=== PATIENT | male | born 1985 | race Caucasian/White ===

== ENCOUNTER 2024-11-29 11:55 | Emergency (ER) | payer OTHER, SELFPAY ==
[2024-11-29] VITALS (29 sets, daily range): BP systolic 128–158; BP diastolic 71–90; PULSE 41–58; RESP 3–21; TEMP 36.6; O2SAT 91–97
--- NOTE | 2024-11-29 12:00 | RT.EKG_ITS ---
APPROVED REPORT Exam: Resting ECG Reason for Exam: long qt Patient Location: E HR:59 bpm ECG Measurements Heart Rate 59 AXIS MA 186 P 52 QRSd 98 QRS 85 QT [id number] T 73 QTc 0 Conclusion Sinus bradycardia...rate< 60
--- NOTE | 2024-11-29 12:15 | RT.EKG_ITS ---
APPROVED REPORT Exam: Resting ECG Reason for Exam: repeat ekg Patient Location: E HR:59 bpm ECG Measurements Heart Rate 59 AXIS DC 176 P 44 QRSd 105 QRS 82 QT 677 T 71 QTc 673 Conclusion Sinus bradycardia...rate< 60 ? Prolonged QT interval...QTc >500mS Flat t waves limits QTc calculation
[2024-11-29 13:30] LABS: Magnesium 2.1 mg/dL (1.8-2.4)
[2024-11-29 13:44] LABS: Anion Gap 4.5 mmol/L (3-11); BUN 16 mg/dL (7-18); CO2 31.5 mmol/L (21.0-32.0); CREATININE 1.1 mg/dL (0.70-1.30); Calcium 9.2 mg/dL (8.5-10.1); Chloride 107 mmol/L (98-107); Estimated GFR 87.03 (mL/min/1.73m2); Glucose 103 mg/dL (74-106); Potassium 4.1 mmol/L (3.5-5.1); Sodium 143 mmol/L (136-145); TSH (W/Ref FT4) 1.82 uIU/mL (0.36-3.74); Troponin I 7 ng/L (<or=76)
--- NOTE | 2024-11-29 14:56 | ED.GENADUL_ITS ---
Discharge Plan Disposition Patient Disposition: Home Condition: Stable Discharge Details Clinical Impression: History of prolonged Q-T interval on ECG Primary Care Provider: Unknown,Unknown ED Provider: Jermaine Abreu Home Meds and New Rx's Prescriptions: Continued methadone 40 mg tablet,soluble 100 mg PO DAILY sertraline [Zoloft] 100 mg tablet 100 mg PO DAILY clonidine HCl 0.1 mg tablet 0.1 mg PO DAILY Discharge Instructions Additional Instructions: An EKG and lab work was performed today. Your case was discussed with [facility] cardiology. Is recommended that you continue your methadone treatment at this time. Please follow-up with your substance use disorder treatment team. Please fol low-up with your primary care physician. Return to the ER immediately for any worsening or new concerning symptoms. HPI General Mode of arrival: EMS . Date/Time Provider Initiated Documentation: 11/29/24 12:02 . Limitations to Documentation: no limitations . Information obtained by: patient and RN/MD . HPI Narrative: 39-year-old male sent to the ER concern for prolonged QT interval. Patient is currently incarcerated. He has a history of substance use disorder treated with methadone over the past 1 year. He apparently had an outpatient EKG several weeks ago that demonstrated prolonged QTc. Methadone dosing was decreased and a repeat EKG continued to demonstrate prolonged QTc. Screening labs were ordered and unfortunately could not be obtained after 2 attempts. Cardiology was consulted and recommended continued repeat EKG and monitor off methadone. Dr. Salguero at [facility] overseeing care today and recommended patient be sent to the ED for lab testing that could not be obtained and skilled nursing. Patient is asymptomatic. He has no chest pain or palpitations. No shortness of breath. Patient denies history of syncope. He has no cardiac history. No history of sudden in his family. Related Data Home Medications ?Medication ?Instructions ?Recorded ?Confirmed clonidine HCl 0.1 mg tablet 0.1 mg PO DAILY 11/29/24 11/29/24 methadone 40 mg soluble tablet 100 mg PO DAILY 11/29/24 11/29/24 sertraline 100 mg tablet (Zoloft) 100 mg PO DAILY 11/29/24 11/29/24 Allergies Allergy/AdvReac Type Severity Reaction Status Date / Time Penicillins Allergy Mild Skin Rash Verified 11/29/24 12:15 General Stated Complaint: Chest Pain LENKA: 3 Review of Systems All systems reviewed & are unremarkable except as noted in HPI and below Exam Const General: cooperative and no acute distress [facility] Mouth: moist mucous membranes Eyes Conjunctivae: normal conjunctivae Sclera: normal sclerae Resp Auscultation: clear to auscultation bilaterally, no rales, no rhonchi and no wheezes Cardio Rate: regular rate and not tachycardic Rhythm: regular rhythm GI Palpation: soft, not firm, no guarding, no masses, not rigid and nontender Skin General skin exam: no rashes or lesions noted Course Vital Signs Vital signs: Vital Signs Temperature 36.6 C 11/29/24 12:11 Pulse 57 L 11/29/24 12:11 Respiratory Rate 16 11/29/24 12:11 Blood Pressure 158/85 H 11/29/24 12:11 Pulse Oximetry 93 11/29/24 12:11 Temperature 36.6 C 11/29/24 12:11 Temperature Source Oral 11/29/24 12:11 Pulse 57 L 11/29/24 12:11 Respiratory Rate 16 11/29/24 12:11 Blood Pressure 158/85 H 11/29/24 12:11 Blood Pressure Position Sitting 11/29/24 12:11 Pulse Oximetry 93 11/29/24 12:11 Oxygen Delivery Method Room Air 11/29/24 12:11 Oxygen Flow Rate 0 11/29/24 12:11 End Tidal Co2 0 11/29/24 12:11 Lab/Test Results Lab/Test Results: Laboratory Tests Range/Units 11/29/24 13:09 Sodium (136-145) mmol/L 143 Potassium (3.5-5.1) mmol/L 4.1 Chloride (98-107) mmol/L 107 Carbon Dioxide (21.0-32.0) mmol/L 31.5 Anion Gap (3-11) mmol/L 4.5 BUN (7-18) mg/dL 16 Creatinine (0.70-1.30) mg/dL 1.1 Est GFR (CKD-EPI 2020) (mL/min/1.73m2) 87.03 Glucose (74-106) mg/dL 103 Calcium (8.5-10.1) mg/dL 9.2 Magnesium (1.8-2.4) mg/dL 2.1 Troponin I (<or=76) ng/L 7 TSH (0.36-3.74) uIU/mL 1.82 Medical Decision Making 39-year-old male with history of substance use disorder, on methadone for the past year, here with concern for prolonged QT and inability to obtain labs in skilled nursing Patient is hemodynamically stable. He has no complaints. Patient is asymptomatic. No history of syncope, palpitations, shortness of breath, or chest pain. No family history of sudden or cardiac issues. Labs reviewed and nondiagnostic. Magnesium normal. TSH normal. Potassium normal. EKG was reviewed and interpreted by me: Please see report, initial EKG sinus rhythm, QTc calculation not provided. Repeat EKG was performed and demonstrates sinus bradycardia 59 bpm, calculated QTcb noted to be 673. T waves are flat and I suspect this is limiting ability to accurately calculate interval. I sent EKG to [facility] cardiology and spoke with Dr. Clements on the phone, he reviewed the EKG and we discussed ED presentation. He agrees that EKG and QTc calculation limited given flattened T waves. He recommends maintaining methadone dosing at this time as benefit of methadone outweighs risk. I attempted to contact Dr. Salguero, medical device at the [facility] and left a message with her staff to call back. Plan will be for discharge with outpatient follow-up. Plan discussed with the patient and correctional officers. Usual and customary discharge instructions were reviewed. Lab Data Lab results reviewed: Yes I reviewed the patient's lab results. Labs: Laboratory Tests Range/Units 11/29/24 13:09 Sodium (136-145) mmol/L 143 Potassium (3.5-5.1) mmol/L 4.1 Chloride (98-107) mmol/L 107 Carbon Dioxide (21.0-32.0) mmol/L 31.5 Anion Gap (3-11) mmol/L 4.5 BUN (7-18) mg/dL 16 Creatinine (0.70-1.30) mg/dL 1.1 Est GFR (CKD-EPI 2020) (mL/min/1.73m2) 87.03 Glucose (74-106) mg/dL 103 Calcium (8.5-10.1) mg/dL 9.2 Magnesium (1.8-2.4) mg/dL 2.1 Troponin I (<or=76) ng/L 7 TSH (0.36-3.74) uIU/mL 1.82 Quality:SDOH Health Related Social Needs: No Data to Display PFSH All Active Problems History of prolonged Q-T interval on ECG (Acute) Social History Smoking/Tobacco Use Status: Never Smoking risk assessment performed?: Yes Alcohol Intake: never Substance use type: does not use
== END 2024-11-29 15:10 | disposition home or self-care (01) ==
PROVIDERS: Emergency Provider Student in an Organized Health Care Education/Training Program
DX: R94.31 Abnormal electrocardiogram [ECG] [EKG] (principal)
CPT/HCPCS: 99284; 99283; 36415; 80048; 93005; 83735; 84443; 84484; 93010